=== PATIENT | female | born 1950 | race Caucasian/White ===

== ENCOUNTER 2019-04-23 11:41 | Inpatient (IN) ==
[2019-04-23] MEDS ORDERED: 0.9 % Sodium Chloride 1,000 ML IVC ONE (12:05)
[2019-04-23 12:35] LABS: Basophils # 0.1 K/mcL (0.0-0.2); Basophils % 0.2 %; Eosinophils # 0.1 K/mcL (0.0-0.6); Eosinophils % 0.2 %; Hematocrit 38.3 % (35.3-44.9); Immature Granulocytes % 1.1 % (0-4); Lymphocytes # 1.3 K/mcL (0.6-4.6); Lymphocytes % 5.5 %; Mean Corpuscular HGB Conc 33.9 g/dL (31.6-35.5); Mean Corpuscular Hemoglobin 30.4 pg (28.0-33.3); Mean Corpuscular Volume 89.5 fL (83.0-100.0); Mean Platelet Volume 9.7 fL (9.4-12.4); Monocytes # 1.4 K/mcL (0.0-1.3); Monocytes % 5.7 %; Neutrophils # 20.9 K/mcL (1.6-8.9); Platelet Count 242 K/mcL (140-400); Red Blood Count 4.28 M/mcL (3.82-4.97); Segmented Neutrophils % 87.3 %
[2019-04-23 12:39] LABS: INR 1.2; Prothrombin Time 13.3 Seconds (9.4-12.1)
[2019-04-23 12:49] LABS: Alanine Aminotransferase 20 Units/L (7-52); Albumin 3.9 g/dL (3.5-5.7); Albumin/Globulin Ratio 1.3 (1.1-2.2); Alkaline Phosphatase 64 Units/L (34-104); Aspartate Amino Transferase 26 Units/L (13-39); BUN/Creatinine Ratio 14 (6-26); Bilirubin,Total 0.6 mg/dL (0.3-1.0); Blood Urea Nitrogen 55 mg/dL (8-23); Calcium 9.7 mg/dL (8.6-10.3); Carbon Dioxide 26 mEq/L (23-29); Chloride 95 mEq/L (98-107); Ethanol < 10 mg/dL (Less than 10); Glucose 92 mg/dL (70-105); Osmolality,Calculated 293 (280-300); Potassium 3.7 mEq/L (3.5-5.1); Sodium 134 mEq/L (136-145); Total Protein 6.9 g/dL (6.4-8.9); eGFR For African Americans 14 (> 60); eGFR For Non-African Americans 11 (> 60)
[2019-04-23] MEDS ORDERED: Azithromycin 250 MG TABLET PO ONE (12:54)
[2019-04-23] MEDS ORDERED: cefTRIAXone 1,000 MG in Water for inj. (sterile) 10 ML IVP ONE (12:54)
[2019-04-23] MEDS ORDERED: MetroNIDAZOLE 500 MG/100 ML 500 MG/100 ML BAG IVPB ONE (12:57)
[2019-04-23] MEDS ORDERED: 0.9 % Sodium Chloride 1,000 ML IV ONE ×2 (14:55→15:36)
[2019-04-23] MEDS ORDERED: Aspirin 325 MG TABLET PO ONE (14:59)
[2019-04-23 15:58] LABS: ABG Base Excess -1 mEq/L (-2 to 3); ABG HCO3 25 mEq/L (21-27); ABG Oxygen Saturation 95 % (95-98); ABG PCO2 48 mmHg (35-45); ABG PH 7.32 pH Units (7.32-7.45); ABG PO2 81 mmHg (85-104); ABG TCO2 27 mEq/L (20-26)
[2019-04-23] MEDS ORDERED: Ipratropium/Albuterol Neb 3 ML ONE (16:01)
[2019-04-23] MEDS: Ipratropium/Albuterol Neb 3 ML IH SCH ×2 (16:02→19:49)
[2019-04-23] MEDS ORDERED: Naloxone 0.4 MG/ML INJ IVP PRN (16:07)
[2019-04-23] MEDS ORDERED: *HR* Dextrose 50 % in Water (Syg) 50 ML SYRINGE IVP PRN (16:26)
[2019-04-23] MEDS ORDERED: D5% in Water 1,000 ML IVC PRN (16:26)
[2019-04-23] MEDS ORDERED: Dextrose Gel 15 GM/37.5 ML TUBE PO PRN ×2 (16:26)
[2019-04-23] MEDS: MethylPREDNISolone 40 MG/ML VIAL IVP SCH (19:13)
[2019-04-23] MEDS: Insulin LISPRO 300 UNITS/3 ML VIAL SQ SCH ×2 (19:14→21:29)
[2019-04-23] MEDS: Budesonide/Formoterol 80/4.5 1 PUFF INH IH SCH (19:49)
[2019-04-23] MEDS ORDERED: 0.9 % Sodium Chloride 1,000 ML IVC SCH (20:00)
[2019-04-23 20:58] LABS: Bilirubin,Urine Small (Negative); Blood,Urine Moderate (Negative); Clarity,Urine Turbid (Clear); Color,Urine Red (Yellow); Glucose,Urine (UA) Normal (Normal); Ketones,Urine Trace mg/dL (Negative); Leukocyte Esterase,Urine Large (Negative); Nitrite,Urine Positive (Negative); Protein,Urine 30 mg/dL (Neg-Trace); Specific Gravity,Urine 1.025 (1.010-1.025); Urobilinogen,Urine Normal (Normal)
[2019-04-23 21:00] LABS: Bacteria,Urine Many per hpf (None-Few); Squamous Epithelial Cell,Urine Many per lpf (None-Few); WBC,Urine TNTC per hpf (0-3)
[2019-04-23] MEDS ORDERED: traZODone 50 MG TABLET PO SCH (21:00)
[2019-04-23] MEDS ORDERED: Aspirin 81 MG TAB.CHEW PO SCH (21:00)
[2019-04-23] MEDS: BuPROPion XL (24 HR) 150 MG TABLET PO SCH (21:28)
[2019-04-23] MEDS: *HR* Heparin 5,000 UNIT/ML VIAL SQ SCH (21:28)
[2019-04-24] MEDS: Ipratropium/Albuterol Neb 3 ML IH SCH ×7 (00:06→23:40)
[2019-04-24 02:56] LABS: Basophils # 0.1 K/mcL (0.0-0.2); Basophils % 0.4 %; Eosinophils % 0.1 %; Hematocrit 34.8 % (35.3-44.9); Hemoglobin 11.5 g/dL (11.5-15.4); Immature Granulocytes % 1.2 % (0-4); Lymphocytes # 0.6 K/mcL (0.6-4.6); Lymphocytes % 4.1 %; Mean Corpuscular Hemoglobin 29.8 pg (28.0-33.3); Mean Corpuscular Volume 90.2 fL (83.0-100.0); Mean Platelet Volume 9.8 fL (9.4-12.4); Monocytes # 0.3 K/mcL (0.0-1.3); Monocytes % 1.9 %; Neutrophils # 12.9 K/mcL (1.6-8.9); Platelet Count 194 K/mcL (140-400); Red Blood Count 3.86 M/mcL (3.82-4.97); Red Cell Distribution Width 13.7 % (11.5-14.5); Segmented Neutrophils % 92.3 %; White Blood Count 13.9 K/mcL (4.3-11.1)
[2019-04-24 03:15] LABS: Calcium 8.2 mg/dL (8.6-10.3); Magnesium 1.8 mg/dL (1.6-2.6); Phosphorous 5.5 mg/dL (2.7-4.5)
[2019-04-24 04:14] LABS: Estimated Average Glucose 134 mg/dl
[2019-04-24] MEDS: MethylPREDNISolone 40 MG/ML VIAL IVP SCH ×2 (06:39→17:29)
[2019-04-24] MEDS: Budesonide/Formoterol 80/4.5 1 PUFF INH IH SCH ×2 (07:34→20:03)
[2019-04-24] MEDS ORDERED: Azithromycin 250 MG TABLET PO SCH (09:00)
[2019-04-24] MEDS ORDERED: cefTRIAXone 1,000 MG in Water for inj. (sterile) 10 ML IVP SCH (09:00)
[2019-04-24] MEDS: Insulin LISPRO 300 UNITS/3 ML VIAL SQ SCH ×4 (09:12→20:50)
[2019-04-24] MEDS: *HR* Heparin 5,000 UNIT/ML VIAL SQ SCH ×2 (09:20→20:48)
[2019-04-24] MEDS: BuPROPion XL (24 HR) 150 MG TABLET PO SCH (09:21)
[2019-04-24] MEDS ORDERED: Pregabalin 50 MG CAPSULE PO SCH (10:45)
[2019-04-24] MEDS: Acetaminophen 325 MG TABLET PO PRN (10:55)
[2019-04-24] MEDS: 0.9 % Sodium Chloride 1,000 ML IVC SCH (14:31)
[2019-04-24 16:12] LABS: Adenovirus Not Detected (Not Detect); Coronavirus 229E Not Detected (Not Detect); Coronavirus HKU1 Not Detected (Not Detect); Coronavirus NL63 Not Detected (Not Detect); Coronavirus OC43 Not Detected (Not Detect); Human Metapneumovirus Not Detected (Not Detect); Human Rhinovirus/Enterovirus Not Detected (Not Detect); Influenza A Subtype 2009 H1 Not Detected (Not Detect); Influenza B Not Detected (Not Detect); Parainfluenza Virus 1 Not Detected (Not Detect); Parainfluenza Virus 2 Not Detected (Not Detect)
[2019-04-24 16:13] LABS: Bordetella Pertussis Not Detected (Not Detect); Chlamydophila pneumoniae Not Detected (Not Detect); Mycoplasma pneumoniae Not Detected (Not Detect); Parainfluenza Virus 3 Not Detected (Not Detect); Parainfluenza Virus 4 Not Detected (Not Detect); Respiratory Syncytial Virus Not Detected (Not Detect)
[2019-04-24] MEDS ORDERED: Baclofen 10 MG TABLET PO PRN (16:27)
[2019-04-24] MEDS ORDERED: polyethylene glycoL 3350 17 GM POWD.PACK PO PRN (16:27)
[2019-04-24] MEDS ORDERED: Nitroglycerin 0.4 MG TAB.SUBL SL PRN (16:27)
[2019-04-24] MEDS: Aspirin Enteric Coated 81 MG Tablet PO SCH (20:48)
[2019-04-24] MEDS: lisinopriL 20 MG TABLET PO SCH (20:48)
[2019-04-24] MEDS: traZODone 50 MG TABLET PO SCH (20:49)
[2019-04-24] MEDS: Ranolazine 500 MG TAB.ER.12H PO SCH (20:49)
[2019-04-24] MEDS ORDERED: NON-FORMULARY MEDICATION 1 EACH EACH (Duloxetine Hcl [Cymbalta] 60 MG) PO SCH (21:00)
[2019-04-24] MEDS ORDERED: Aspirin 81 MG TAB.CHEW PO SCH (21:00)
[2019-04-25] MEDS: Acetaminophen 325 MG TABLET PO PRN (01:47)
[2019-04-25 02:37] LABS: Basophils # 0.1 K/mcL (0.0-0.2); Basophils % 0.8 %; Hematocrit 38.8 % (35.3-44.9); Hemoglobin 12.6 g/dL (11.5-15.4); Immature Granulocytes % 1.9 % (0-4); Lymphocytes # 0.7 K/mcL (0.6-4.6); Lymphocytes % 5.5 %; Mean Corpuscular HGB Conc 32.5 g/dL (31.6-35.5); Mean Corpuscular Hemoglobin 30.2 pg (28.0-33.3); Mean Platelet Volume 10.5 fL (9.4-12.4); Monocytes # 0.6 K/mcL (0.0-1.3); Monocytes % 4.3 %; Neutrophils # 11.2 K/mcL (1.6-8.9); Platelet Count 185 K/mcL (140-400); Red Blood Count 4.17 M/mcL (3.82-4.97); Red Cell Distribution Width 13.8 % (11.5-14.5); Segmented Neutrophils % 87.5 %; White Blood Count 12.8 K/mcL (4.3-11.1)
[2019-04-25 03:11] LABS: Albumin 3.7 g/dL (3.5-5.7); Albumin/Globulin Ratio 1.3 (1.1-2.2); Bilirubin,Total 0.3 mg/dL (0.3-1.0); Calcium 8.9 mg/dL (8.6-10.3); Globulin 2.9 g/dL (2.4-3.5); Total Protein 6.6 g/dL (6.4-8.9)
[2019-04-25] MEDS: Ipratropium/Albuterol Neb 3 ML IH SCH ×6 (03:54→23:34)
[2019-04-25] MEDS: 0.9 % Sodium Chloride 1,000 ML IVC SCH ×2 (06:20→20:23)
[2019-04-25] MEDS: MethylPREDNISolone 40 MG/ML VIAL IVP SCH (06:20)
[2019-04-25] MEDS: Budesonide/Formoterol 80/4.5 1 PUFF INH IH SCH ×2 (07:37→20:06)
[2019-04-25] MEDS ORDERED: amLODIPine 5 MG TABLET PO SCH (09:00)
[2019-04-25] MEDS ORDERED: levoFLOXacin 750 MG TABLET PO ONE (09:00)
[2019-04-25] MEDS: *HR* OxyCODONE/APAP 10/325 TABLET PO PRN ×2 (09:37→20:34)
[2019-04-25] MEDS: BuPROPion XL (24 HR) 150 MG TABLET PO SCH (09:37)
[2019-04-25] MEDS: Isosorbide MONOnitrate (24 HR) 60 MG TAB.ER.24H PO SCH (09:37)
[2019-04-25] MEDS: *HR* Heparin 5,000 UNIT/ML VIAL SQ SCH ×2 (09:37→20:22)
[2019-04-25] MEDS: lisinopriL 20 MG TABLET PO SCH (09:38)
[2019-04-25] MEDS: Ranolazine 500 MG TAB.ER.12H PO SCH ×2 (09:38→20:22)
[2019-04-25] MEDS: Aspirin Enteric Coated 81 MG Tablet PO SCH ×2 (09:38→20:22)
[2019-04-25] MEDS: Pregabalin 75 MG CAPSULE PO SCH (09:38)
[2019-04-25] MEDS: Insulin LISPRO 300 UNITS/3 ML VIAL SQ SCH ×4 (09:41→20:38)
[2019-04-25] MEDS: traZODone 50 MG TABLET PO SCH (20:22)
[2019-04-26] MEDS ORDERED: Haloperidol Lactate 5 MG/ML VIAL IVP ONE (02:19)
[2019-04-26] MEDS ORDERED: Haloperidol Lactate 5 MG/ML VIAL IM ONE (02:58)
[2019-04-26 03:08] LABS: Basophils # 0.2 K/mcL (0.0-0.2); Basophils % 1.3 %; Eosinophils # 0.1 K/mcL (0.0-0.6); Eosinophils % 0.9 %; Hematocrit 37.5 % (35.3-44.9); Hemoglobin 12.7 g/dL (11.5-15.4); Immature Granulocytes % 4.5 % (0-4); Lymphocytes # 1.4 K/mcL (0.6-4.6); Lymphocytes % 9.4 %; Mean Corpuscular HGB Conc 33.9 g/dL (31.6-35.5); Mean Corpuscular Hemoglobin 30.7 pg (28.0-33.3); Mean Corpuscular Volume 90.6 fL (83.0-100.0); Monocytes # 1.4 K/mcL (0.0-1.3); Monocytes % 9.5 %; Neutrophils # 10.7 K/mcL (1.6-8.9); Platelet Count 248 K/mcL (140-400); Red Blood Count 4.14 M/mcL (3.82-4.97); Red Cell Distribution Width 13.5 % (11.5-14.5); Segmented Neutrophils % 74.4 %; White Blood Count 14.3 K/mcL (4.3-11.1)
[2019-04-26 03:38] LABS: Calcium 9.4 mg/dL (8.6-10.3); Potassium 3.8 mEq/L (3.5-5.1)
[2019-04-26] MEDS: Ipratropium/Albuterol Neb 3 ML IH SCH ×5 (03:52→20:15)
[2019-04-26] MEDS: amLODIPine 5 MG TABLET PO SCH (08:50)
[2019-04-26] MEDS: Pregabalin 75 MG CAPSULE PO SCH (08:50)
[2019-04-26] MEDS: Ranolazine 500 MG TAB.ER.12H PO SCH ×2 (08:50→20:42)
[2019-04-26] MEDS: Aspirin Enteric Coated 81 MG Tablet PO SCH ×2 (08:51→20:42)
[2019-04-26] MEDS: Isosorbide MONOnitrate (24 HR) 60 MG TAB.ER.24H PO SCH (08:51)
[2019-04-26] MEDS: BuPROPion XL (24 HR) 150 MG TABLET PO SCH (08:51)
[2019-04-26] MEDS: Insulin LISPRO 300 UNITS/3 ML VIAL SQ SCH ×4 (08:52→20:50)
[2019-04-26] MEDS: *HR* Heparin 5,000 UNIT/ML VIAL SQ SCH (08:52)
[2019-04-26] MEDS ORDERED: predniSONE 20 MG TABLET PO SCH (09:00)
[2019-04-26] MEDS ORDERED: levoFLOXacin 500 MG TABLET PO SCH (09:00)
[2019-04-26] MEDS ORDERED: lisinopriL 20 MG TABLET PO SCH (09:00)
[2019-04-26] MEDS ORDERED: *HR* Heparin 5,000 UNIT/ML VIAL IVP PRN ×2 (10:42)
[2019-04-26] MEDS ORDERED: *HR* Heparin 5,000 UNIT/ML VIAL IVP ONE (10:42)
[2019-04-26] MEDS: Budesonide/Formoterol 80/4.5 1 PUFF INH IH SCH ×2 (11:37→20:12)
[2019-04-26] MEDS: DilTIAZem 50 MG in 0.9 % Sodium Chloride 40 ML IVC SCH (11:54)
[2019-04-26] MEDS: Heparin 25,000 UNIT/250 ML D5W 25,000 UNIT/250 ML IV.SOLN IVC SCH (14:30)
[2019-04-26] MEDS: traZODone 50 MG TABLET PO SCH (20:42)
[2019-04-26] MEDS: 0.9 % Sodium Chloride 1,000 ML IVC SCH ×2 (20:42→20:50)
[2019-04-26] MEDS: Levalbuterol Neb 1.25 MG/3 ML IH SCH (23:50)
[2019-04-27] MEDS ORDERED: Ondansetron ODT 4 MG TAB.RAPDIS SL PRN (01:22)
[2019-04-27] MEDS: Levalbuterol Neb 1.25 MG/3 ML IH SCH ×5 (03:24→20:22)
[2019-04-27] MEDS: DilTIAZem 50 MG in 0.9 % Sodium Chloride 40 ML IVC SCH ×2 (04:01→19:19)
[2019-04-27] MEDS: *HR* OxyCODONE/APAP 10/325 TABLET PO PRN (04:23)
[2019-04-27 04:51] LABS: Basophils % 0.1 %; Eosinophils % 0.3 %; Hematocrit 35.7 % (35.3-44.9); Hemoglobin 12.1 g/dL (11.5-15.4); Immature Granulocytes % 6.4 % (0-4); Lymphocytes # 1.6 K/mcL (0.6-4.6); Lymphocytes % 10.4 %; Mean Corpuscular HGB Conc 33.9 g/dL (31.6-35.5); Mean Corpuscular Hemoglobin 30.4 pg (28.0-33.3); Mean Corpuscular Volume 89.7 fL (83.0-100.0); Mean Platelet Volume 9.7 fL (9.4-12.4); Monocytes # 1.8 K/mcL (0.0-1.3); Monocytes % 11.5 %; Neutrophils # 11.1 K/mcL (1.6-8.9); Platelet Count 265 K/mcL (140-400); Red Blood Count 3.98 M/mcL (3.82-4.97); Red Cell Distribution Width 13.5 % (11.5-14.5); Segmented Neutrophils % 71.3 %; White Blood Count 15.6 K/mcL (4.3-11.1)
[2019-04-27 04:58] LABS: Eosinophils # 0.1 K/mcL (0.0-0.6)
[2019-04-27 05:08] LABS: BUN/Creatinine Ratio 20 (6-26); Blood Urea Nitrogen 20 mg/dL (8-23); Calcium 9.3 mg/dL (8.6-10.3); Carbon Dioxide 27 mEq/L (23-29); Chloride 106 mEq/L (98-107); Glucose 131 mg/dL (70-105); Osmolality,Calculated 296 (280-300); Potassium 3.3 mEq/L (3.5-5.1); Sodium 141 mEq/L (136-145); eGFR For African Americans > 60 (> 60); eGFR For Non-African Americans 55 (> 60)
[2019-04-27 05:26] LABS: Platelet Estimate Normal (Normal)
[2019-04-27] MEDS: Budesonide/Formoterol 80/4.5 1 PUFF INH IH SCH ×2 (07:06→20:22)
[2019-04-27] MEDS ORDERED: predniSONE 20 MG TABLET ONE (08:03)
[2019-04-27] MEDS ORDERED: amLODIPine 5 MG TABLET ONE (08:03)
[2019-04-27] MEDS ORDERED: 0.9 % Sodium Chloride 1,000 ML IV.SOLN ONE (08:03)
[2019-04-27] MEDS ORDERED: BuPROPion XL (24 HR) 150 MG TABLET PO ONE (08:03)
[2019-04-27] MEDS ORDERED: Doxycycline 100 MG CAPSULE PO ONE (08:03)
[2019-04-27] MEDS ORDERED: Aspirin Enteric Coated 81 MG Tablet PO ONE (08:03)
[2019-04-27] MEDS ORDERED: Levalbuterol Neb 1.25 MG/3 ML ONE (08:03)
[2019-04-27] MEDS ORDERED: Pregabalin 75 MG CAPSULE ONE (08:03)
[2019-04-27] MEDS ORDERED: Ranolazine 500 MG TAB.ER.12H PO ONE (08:03)
[2019-04-27] MEDS ORDERED: Isosorbide MONOnitrate (24 HR) 60 MG TAB.ER.24H PO ONE (08:03)
[2019-04-27] MEDS ORDERED: predniSONE 20 MG TABLET PO SCH (09:00)
[2019-04-27] MEDS ORDERED: *HR* Metoprolol 5 MG/5 ML VIAL IVP ONE ×2 (15:45→17:42)
[2019-04-27] MEDS ORDERED: *HR* LORazepam 2 MG/ML VIAL ONE (15:45)
[2019-04-27] MEDS ORDERED: Potassium Chloride 40 MEQ, Lidocaine 1% 2 ML in D5% in Water 500 ML IVPB ONE (16:00)
[2019-04-27] MEDS: Insulin LISPRO 300 UNITS/3 ML VIAL SQ SCH ×4 (16:25→20:54)
[2019-04-27] MEDS: Heparin 25,000 UNIT/250 ML D5W 25,000 UNIT/250 ML IV.SOLN IVC SCH (16:26)
[2019-04-27] MEDS: Aspirin Enteric Coated 81 MG Tablet PO SCH ×2 (16:26→20:41)
[2019-04-27] MEDS: Doxycycline 100 MG CAPSULE PO SCH ×2 (16:27→20:40)
[2019-04-27] MEDS: amLODIPine 5 MG TABLET PO SCH (16:27)
[2019-04-27] MEDS: Isosorbide MONOnitrate (24 HR) 60 MG TAB.ER.24H PO SCH (16:27)
[2019-04-27] MEDS: Pregabalin 75 MG CAPSULE PO SCH (16:27)
[2019-04-27] MEDS: BuPROPion XL (24 HR) 150 MG TABLET PO SCH (16:28)
[2019-04-27] MEDS: Ranolazine 500 MG TAB.ER.12H PO SCH ×2 (16:28→20:40)
[2019-04-27] MEDS ORDERED: Haloperidol Lactate 5 MG/ML VIAL IVP ONE (17:42)
[2019-04-27] MEDS: 0.9 % Sodium Chloride 1,000 ML IVC SCH (18:20)
[2019-04-27] MEDS ORDERED: *HR* Metoprolol 5 MG/5 ML VIAL IVP PRN (18:50)
[2019-04-27] MEDS: traZODone 50 MG TABLET PO SCH (20:41)
[2019-04-28] MEDS: Levalbuterol Neb 1.25 MG/3 ML IH SCH ×7 (00:05→23:30)
[2019-04-28] MEDS: *HR* OxyCODONE/APAP 10/325 TABLET PO PRN ×2 (03:10→20:33)
[2019-04-28] MEDS: DilTIAZem 50 MG in 0.9 % Sodium Chloride 40 ML IVC SCH ×4 (03:36→13:43)
[2019-04-28 03:37] LABS: Hematocrit 33.7 % (35.3-44.9); Hemoglobin 11.3 g/dL (11.5-15.4); Mean Corpuscular HGB Conc 33.5 g/dL (31.6-35.5); Mean Corpuscular Hemoglobin 29.9 pg (28.0-33.3); Mean Corpuscular Volume 89.2 fL (83.0-100.0); Mean Platelet Volume 9.3 fL (9.4-12.4); Platelet Count 300 K/mcL (140-400); Red Blood Count 3.78 M/mcL (3.82-4.97); Red Cell Distribution Width 13.4 % (11.5-14.5)
[2019-04-28 04:04] LABS: BUN/Creatinine Ratio 15 (6-26); Blood Urea Nitrogen 13 mg/dL (8-23); Calcium 8.8 mg/dL (8.6-10.3); Carbon Dioxide 25 mEq/L (23-29); Chloride 107 mEq/L (98-107); Glucose 127 mg/dL (70-105); Magnesium 1.7 mg/dL (1.6-2.6); Osmolality,Calculated 294 (280-300); Potassium 3.1 mEq/L (3.5-5.1); Sodium 141 mEq/L (136-145); Troponin I < 0.03 ng/mL (< 0.04); eGFR For African Americans > 60 (> 60); eGFR For Non-African Americans > 60 (> 60)
[2019-04-28] MEDS ORDERED: Potassium Chloride 40 MEQ, Lidocaine 1% 2 ML in D5% in Water 500 ML IVPB ONE (07:42)
[2019-04-28] MEDS: Budesonide/Formoterol 80/4.5 1 PUFF INH IH SCH ×2 (07:53→19:31)
[2019-04-28] MEDS: Ranolazine 500 MG TAB.ER.12H PO SCH ×2 (08:24→20:33)
[2019-04-28] MEDS: Aspirin Enteric Coated 81 MG Tablet PO SCH ×2 (08:24→20:33)
[2019-04-28] MEDS: Isosorbide MONOnitrate (24 HR) 60 MG TAB.ER.24H PO SCH (08:25)
[2019-04-28] MEDS: BuPROPion XL (24 HR) 150 MG TABLET PO SCH (08:25)
[2019-04-28] MEDS: Doxycycline 100 MG CAPSULE PO SCH ×2 (08:25→20:33)
[2019-04-28] MEDS: Pregabalin 75 MG CAPSULE PO SCH (08:26)
[2019-04-28] MEDS: amLODIPine 5 MG TABLET PO SCH (08:26)
[2019-04-28] MEDS: Insulin LISPRO 300 UNITS/3 ML VIAL SQ SCH ×4 (08:26→20:37)
[2019-04-28] MEDS ORDERED: predniSONE 10 MG TABLET PO SCH (09:00)
[2019-04-28] MEDS: Heparin 25,000 UNIT/250 ML D5W 25,000 UNIT/250 ML IV.SOLN IVC SCH (13:42)
[2019-04-28] MEDS: traZODone 50 MG TABLET PO SCH (20:33)
[2019-04-29 00:56] LABS: Hematocrit 33.4 % (35.3-44.9); Hemoglobin 11.2 g/dL (11.5-15.4); Mean Corpuscular HGB Conc 33.5 g/dL (31.6-35.5); Mean Corpuscular Hemoglobin 29.9 pg (28.0-33.3); Mean Corpuscular Volume 89.1 fL (83.0-100.0); Mean Platelet Volume 8.8 fL (9.4-12.4); Platelet Count 298 K/mcL (140-400); Red Blood Count 3.75 M/mcL (3.82-4.97); Red Cell Distribution Width 13.4 % (11.5-14.5); White Blood Count 13.5 K/mcL (4.3-11.1)
[2019-04-29 01:14] LABS: BUN/Creatinine Ratio 16 (6-26); Blood Urea Nitrogen 12 mg/dL (8-23); Calcium 8.8 mg/dL (8.6-10.3); Carbon Dioxide 30 mEq/L (23-29); Chloride 106 mEq/L (98-107); Glucose 116 mg/dL (70-105); Magnesium 1.7 mg/dL (1.6-2.6); Osmolality,Calculated 287 (280-300); Potassium 3.3 mEq/L (3.5-5.1); Sodium 138 mEq/L (136-145); eGFR For African Americans > 60 (> 60); eGFR For Non-African Americans > 60 (> 60)
[2019-04-29] MEDS: Levalbuterol Neb 1.25 MG/3 ML IH SCH ×5 (03:40→20:18)
[2019-04-29] MEDS: Budesonide/Formoterol 80/4.5 1 PUFF INH IH SCH ×2 (07:32→20:18)
[2019-04-29] MEDS: Insulin LISPRO 300 UNITS/3 ML VIAL SQ SCH ×4 (07:58→21:14)
[2019-04-29] MEDS: Isosorbide MONOnitrate (24 HR) 60 MG TAB.ER.24H PO SCH (08:04)
[2019-04-29] MEDS: Aspirin Enteric Coated 81 MG Tablet PO SCH ×2 (08:04→21:16)
[2019-04-29] MEDS: Pregabalin 75 MG CAPSULE PO SCH (08:04)
[2019-04-29] MEDS: Ranolazine 500 MG TAB.ER.12H PO SCH (08:04)
[2019-04-29] MEDS: amLODIPine 5 MG TABLET PO SCH (08:04)
[2019-04-29] MEDS: BuPROPion XL (24 HR) 150 MG TABLET PO SCH (08:04)
[2019-04-29] MEDS: Doxycycline 100 MG CAPSULE PO SCH ×2 (08:04→21:16)
[2019-04-29] MEDS: *HR* OxyCODONE/APAP 10/325 TABLET PO PRN ×3 (08:07→22:36)
[2019-04-29] MEDS: DilTIAZem CD (24hr) 180 MG CAP.ER.24H PO SCH (12:39)
[2019-04-29] MEDS: Apixaban 5 MG TABLET PO SCH ×2 (15:48→21:16)
[2019-04-29] MEDS: lisinopriL 10 MG TABLET PO SCH (15:48)
[2019-04-29] MEDS: Heparin 25,000 UNIT/250 ML D5W 25,000 UNIT/250 ML IV.SOLN IVC SCH (19:36)
[2019-04-29] MEDS: traZODone 50 MG TABLET PO SCH (21:17)
[2019-04-30] MEDS: Levalbuterol Neb 1.25 MG/3 ML IH SCH ×6 (00:03→20:43)
[2019-04-30 05:16] LABS: BUN/Creatinine Ratio 18 (6-26); Blood Urea Nitrogen 13 mg/dL (8-23); Carbon Dioxide 25 mEq/L (23-29); Chloride 106 mEq/L (98-107); Glucose 118 mg/dL (70-105); Osmolality,Calculated 287 (280-300); Potassium 3.8 mEq/L (3.5-5.1); Sodium 138 mEq/L (136-145); eGFR For African Americans > 60 (> 60); eGFR For Non-African Americans > 60 (> 60)
[2019-04-30] MEDS: *HR* OxyCODONE/APAP 10/325 TABLET PO PRN ×2 (06:34→15:32)
[2019-04-30 06:36] LABS: Basophils % 0.2 %; Eosinophils # 0.4 K/mcL (0.0-0.6); Hematocrit 36.4 % (35.3-44.9); Hemoglobin 12.3 g/dL (11.5-15.4); Lymphocytes # 2.5 K/mcL (0.6-4.6); Lymphocytes % 14.1 %; Mean Corpuscular HGB Conc 33.8 g/dL (31.6-35.5); Mean Corpuscular Hemoglobin 30.8 pg (28.0-33.3); Mean Corpuscular Volume 91.2 fL (83.0-100.0); Monocytes # 1.5 K/mcL (0.0-1.3); Monocytes % 8.2 %; Platelet Count 345 K/mcL (140-400); Red Blood Count 3.99 M/mcL (3.82-4.97); Red Cell Distribution Width 13.8 % (11.5-14.5); Segmented Neutrophils % 70.5 %; White Blood Count 17.9 K/mcL (4.3-11.1)
[2019-04-30 06:44] LABS: Neutrophils # 12.6 K/mcL (1.6-8.9)
[2019-04-30 07:21] LABS: Platelet Estimate Normal (Normal); Reactive Lymphocytes Present (Not Present)
[2019-04-30] MEDS: Budesonide/Formoterol 80/4.5 1 PUFF INH IH SCH ×2 (07:41→20:45)
[2019-04-30] MEDS: Apixaban 5 MG TABLET PO SCH ×2 (08:22→21:20)
[2019-04-30] MEDS: DilTIAZem CD (24hr) 180 MG CAP.ER.24H PO SCH (08:22)
[2019-04-30] MEDS: amLODIPine 5 MG TABLET PO SCH (08:23)
[2019-04-30] MEDS: Isosorbide MONOnitrate (24 HR) 60 MG TAB.ER.24H PO SCH (08:23)
[2019-04-30] MEDS: Ranolazine 500 MG TAB.ER.12H PO SCH ×2 (08:24→21:20)
[2019-04-30] MEDS: lisinopriL 10 MG TABLET PO SCH (08:24)
[2019-04-30] MEDS: Pregabalin 75 MG CAPSULE PO SCH (08:24)
[2019-04-30] MEDS: Doxycycline 100 MG CAPSULE PO SCH ×2 (08:24→21:19)
[2019-04-30] MEDS: BuPROPion XL (24 HR) 150 MG TABLET PO SCH (08:24)
[2019-04-30] MEDS: Aspirin Enteric Coated 81 MG Tablet PO SCH ×2 (08:24→21:18)
[2019-04-30] MEDS: Insulin LISPRO 300 UNITS/3 ML VIAL SQ SCH ×4 (08:25→21:16)
[2019-04-30] MEDS ORDERED: DilTIAZem CD (24hr) 180 MG CAP.ER.24H PO STA (11:12)
[2019-04-30] MEDS: traZODone 50 MG TABLET PO SCH (21:20)
[2019-05-01] MEDS: Levalbuterol Neb 1.25 MG/3 ML IH SCH ×7 (00:26→23:47)
[2019-05-01] MEDS: *HR* OxyCODONE/APAP 10/325 TABLET PO PRN ×3 (00:26→22:33)
[2019-05-01] MEDS: Budesonide/Formoterol 80/4.5 1 PUFF INH IH SCH ×2 (07:50→19:41)
[2019-05-01] MEDS: Doxycycline 100 MG CAPSULE PO SCH ×2 (08:35→22:34)
[2019-05-01] MEDS: Apixaban 5 MG TABLET PO SCH ×2 (08:35→22:34)
[2019-05-01] MEDS: Aspirin Enteric Coated 81 MG Tablet PO SCH (08:35)
[2019-05-01] MEDS: Ranolazine 500 MG TAB.ER.12H PO SCH ×2 (08:35→22:34)
[2019-05-01] MEDS: DilTIAZem CD (24hr) 240 MG CAP.ER.24H PO SCH (08:35)
[2019-05-01] MEDS: BuPROPion XL (24 HR) 150 MG TABLET PO SCH (08:36)
[2019-05-01] MEDS: Pregabalin 75 MG CAPSULE PO SCH (08:37)
[2019-05-01] MEDS: Insulin LISPRO 300 UNITS/3 ML VIAL SQ SCH ×4 (08:38→22:35)
[2019-05-01] MEDS ORDERED: DilTIAZem CD (24hr) 180 MG CAP.ER.24H PO SCH (09:00)
[2019-05-01] MEDS ORDERED: Isosorbide MONOnitrate (24 HR) 60 MG TAB.ER.24H PO SCH (09:00)
[2019-05-01 10:10] LABS: Basophils # 0.1 K/mcL (0.0-0.2); Basophils % 0.7 %; Eosinophils # 0.2 K/mcL (0.0-0.6); Eosinophils % 1.6 %; Hematocrit 34.8 % (35.3-44.9); Hemoglobin 11.6 g/dL (11.5-15.4); Lymphocytes # 1.5 K/mcL (0.6-4.6); Lymphocytes % 9.9 %; Mean Corpuscular HGB Conc 33.3 g/dL (31.6-35.5); Mean Corpuscular Hemoglobin 30.4 pg (28.0-33.3); Mean Corpuscular Volume 91.3 fL (83.0-100.0); Mean Platelet Volume 9.1 fL (9.4-12.4); Monocytes # 0.9 K/mcL (0.0-1.3); Monocytes % 6.1 %; Neutrophils # 11.7 K/mcL (1.6-8.9); Platelet Count 353 K/mcL (140-400); Red Blood Count 3.81 M/mcL (3.82-4.97); Segmented Neutrophils % 78.7 %; White Blood Count 14.9 K/mcL (4.3-11.1)
[2019-05-01] MEDS: traZODone 50 MG TABLET PO SCH (22:30)
[2019-05-01] MEDS: Metoprolol 100 MG TABLET PO SCH (22:33)
[2019-05-02] MEDS: Levalbuterol Neb 1.25 MG/3 ML IH SCH ×5 (03:25→20:25)
[2019-05-02] MEDS: Budesonide/Formoterol 80/4.5 1 PUFF INH IH SCH ×2 (08:04→20:25)
[2019-05-02] MEDS: BuPROPion XL (24 HR) 150 MG TABLET PO SCH (09:23)
[2019-05-02] MEDS: Insulin LISPRO 300 UNITS/3 ML VIAL SQ SCH ×4 (09:24→21:18)
[2019-05-02] MEDS: Aspirin Enteric Coated 81 MG Tablet PO SCH (09:24)
[2019-05-02] MEDS: DilTIAZem CD (24hr) 240 MG CAP.ER.24H PO SCH (09:24)
[2019-05-02] MEDS: Apixaban 5 MG TABLET PO SCH ×2 (09:24→21:16)
[2019-05-02] MEDS: Pregabalin 75 MG CAPSULE PO SCH (09:24)
[2019-05-02] MEDS: Ranolazine 500 MG TAB.ER.12H PO SCH ×2 (09:24→21:16)
[2019-05-02] MEDS: Metoprolol 100 MG TABLET PO SCH ×2 (09:24→21:16)
[2019-05-02] MEDS: Doxycycline 100 MG CAPSULE PO SCH ×2 (09:24→21:16)
[2019-05-02] MEDS: Isosorbide MONOnitrate (24 HR) 30 MG TAB.ER.24H PO SCH (09:24)
[2019-05-02] MEDS: *HR* OxyCODONE/APAP 10/325 TABLET PO PRN ×2 (09:27→21:16)
[2019-05-02] MEDS ORDERED: Levalbuterol Neb 1.25 MG/3 ML IH PRN (20:43)
[2019-05-02] MEDS: traZODone 50 MG TABLET PO SCH (21:16)
[2019-05-03] MEDS: Budesonide/Formoterol 80/4.5 1 PUFF INH IH SCH (07:52)
[2019-05-03] MEDS: Aspirin Enteric Coated 81 MG Tablet PO SCH (08:42)
[2019-05-03] MEDS: Doxycycline 100 MG CAPSULE PO SCH (08:42)
[2019-05-03] MEDS: Metoprolol 100 MG TABLET PO SCH (08:42)
[2019-05-03] MEDS: Apixaban 5 MG TABLET PO SCH (08:42)
[2019-05-03] MEDS: Ranolazine 500 MG TAB.ER.12H PO SCH (08:42)
[2019-05-03] MEDS: Pregabalin 75 MG CAPSULE PO SCH (08:42)
[2019-05-03] MEDS: DilTIAZem CD (24hr) 240 MG CAP.ER.24H PO SCH (08:43)
[2019-05-03] MEDS: BuPROPion XL (24 HR) 150 MG TABLET PO SCH (08:43)
[2019-05-03] MEDS: Isosorbide MONOnitrate (24 HR) 30 MG TAB.ER.24H PO SCH (08:43)
[2019-05-03] MEDS: *HR* OxyCODONE/APAP 10/325 TABLET PO PRN ×2 (08:46→15:34)
[2019-05-03] MEDS: Insulin LISPRO 300 UNITS/3 ML VIAL SQ SCH ×2 (08:50→12:25)
[2019-05-03 15:31] VITALS: BP 133/75
== END 2019-05-03 17:39 | DRG 871 ==
LOC: EMEROOARM 11:41 → 2NENU 11:41 → SUATTDRO 17:03 → 2NENU 18:02
PROVIDERS: ADMIT Internal Medicine; ATTEND Internal Medicine